=== PATIENT | female | born 1980 | race Caucasian/White ===

== ENCOUNTER 2017-11-24 08:00 | Outpatient (CLI) | payer OTHER ==
[2017-11-24 19:50] LABS: H. PYLORIS ANTIGEN STL NEGATIVE (Negative)
== END 2017-11-24 08:01 | disposition home or self-care (01) ==
LOC: LAB.WCP 08:00
PROVIDERS: ATTEND Family Medicine
DX: R19.7 Diarrhea, unspecified (principal)
CPT/HCPCS: 81599; 83630; 87045; 87046; 87177; 87209; 87329; 87338; 87493

== ENCOUNTER 2018-04-09 16:51 | Outpatient (CLI) | payer OTHER ==
--- NOTE | 2018-04-10 19:06 | Ultrasound Report ---
Procedure Date: 04/09/2018 Accession Number: [id number] / [id number] Procedure: US - Pelvic w/Transvaginal CPT Code: FULL RESULT: EXAM: PELVIC ULTRASOUND EXAM DATE: 04/09/2018 05:53 PM. CLINICAL HISTORY: Irregular menses. G2, P 2. LMP 03/18/2018. COMPARISON: None. TECHNIQUE: Realtime transabdominal pelvic scan performed to identify the uterus and adnexa and as an overview of other pelvic structures, followed by transvaginal scan to provide greater detail of the uterus and adnexa, with static image documentation. FINDINGS: Uterus: 7.2 x 5.3 x 4.5 cm, volume 89.8 cc. Retroverted position. Normal overall size and appearance. Masses: None. Endometrium: 10-11 mm. Homogeneous echotexture. No endometrial masses. No increased vascularity. Cervix: Nabothian cysts noted. Right Ovary: 2.7 x 1.8 x 2.2 cm, volume 5.6 cc. Normal echotexture and blood flow. Follicles are present within the right ovary the largest measuring 1.4 x 1.2 x 1.3 cm. Left Ovary: 3.7 x 1.9 x 1.6 cm, volume 5.9 cc. Normal echotexture and blood flow. Complex cyst present in the left ovary measuring 1.4 x 1.4 x 1.4 cm with mild peripheral vascularity. Adjacent unilocular follicular cyst is seen measuring 1.4 x 0.9 x 0.8 cm. Free Fluid: Small volume of pelvic free fluid. Other: None. IMPRESSION: 1. Normal sonographic appearance of the uterus and endometrium. 2. Bilateral ovarian follicles. Mildly complex left ovarian 1.4 cm cyst which may represent a complex follicular/corpus luteal cyst. RADIA
== END 2018-04-09 16:52 | disposition home or self-care (01) ==
LOC: DI 16:51
PROVIDERS: ATTEND Family Medicine
DX: N83.292 Other ovarian cyst, left side (principal)
CPT/HCPCS: 76830; 76856

== ENCOUNTER 2018-04-10 10:15 | Outpatient (CLI) | payer OTHER ==
--- NOTE | 2018-04-10 23:36 | Ultrasound Report ---
Procedure Date: 04/10/2018 Accession Number: [id number] / [id number] Procedure: US - Abdomen Complete CPT Code: FULL RESULT: EXAM: ABDOMEN ULTRASOUND. EXAM DATE: 04/10/2018 11:29 AM. CLINICAL HISTORY: Nausea. COMPARISON: None. TECHNIQUE: Real-time scanning was performed with static images obtained. FINDINGS: Liver: Normal in size and echotexture. 14.6 cm. Main portal vein flow: Hepatopetal. Gallbladder: Normal. No stones, wall thickening, or sonographic Lam's sign. Biliary System: Common bile duct measures 4 mm. No intrahepatic or extrahepatic ductal dilatation. Pancreas: Visualized portion is unremarkable. Kidneys: Right: 10.6 cm longitudinally. Normal. No contour-deforming mass, stones, or hydronephrosis. Left: 11.9 cm longitudinally. Normal. No contour-deforming mass, stones, or hydronephrosis. Spleen: 10.5 x 4.5 x 5.1 cm. Normal in size and echotexture. Aorta and Inferior Vena Cava: Unremarkable. Other: None. IMPRESSION: Normal abdomen ultrasound. RADIA
== END 2018-04-10 10:16 | disposition home or self-care (01) ==
LOC: DI 10:15
PROVIDERS: ATTEND Family Medicine
DX: R11.0 Nausea (principal)
CPT/HCPCS: 76700

== ENCOUNTER 2018-06-12 16:41 | Outpatient (CLI) | payer OTHER ==
--- NOTE | 2018-06-12 20:51 | Ultrasound Report ---
Reason: OTHER SPECIFIED ABNORMAL UTERINE VAGINAL BLEEDIN Procedure Date: 06/12/2018 Accession Number: [id number] / [id number] Procedure: US - Pelvic w/Transvaginal CPT Code: FULL RESULT: EXAM: PELVIC ULTRASOUND EXAM DATE: 06/12/2018 05:51 PM. CLINICAL HISTORY: Other specified abnormal uterine vaginal bleeding. COMPARISON: Pelvic with transvaginal 04/09/2018. TECHNIQUE: Realtime transabdominal pelvic scan performed to identify the uterus and adnexa and as an overview of other pelvic structures, followed by transvaginal scan to provide greater detail of the uterus and adnexa, with static image documentation. FINDINGS: Uterus: 6.9 x 4.8 x 3.9 cm, volume 67.2 cc. Anteverted position. Normal overall size and echotexture. Masses: None. Endometrium: 8.3 mm. Normal. Cervix: Small nabothian cysts. Right Ovary: 4.9 x 2.3 x 2.2 cm, volume 12.9 cc. Physiologic cysts measuring up to 2.7 cm. Normal ovarian blood flow. Left Ovary: 3.4 x 1.8 x 1.0 cm, volume 3.2 cc. Normal echotexture and blood flow. Free Fluid: None. Other: None. IMPRESSION: 1. Unremarkable pelvic ultrasound exam noting a dominant functional 2.7 cm right ovarian cyst. RADIA
== END 2018-06-12 16:42 | disposition home or self-care (01) ==
LOC: DI 16:41
PROVIDERS: ATTEND Registered Nurse
DX: N93.8 Other specified abnormal uterine and vaginal bleeding (principal); N83.201 Unspecified ovarian cyst, right side
CPT/HCPCS: 76830; 76856

== ENCOUNTER 2018-08-07 12:08 | Outpatient (CLI) | payer OTHER ==
--- NOTE | 2018-08-09 09:31 | Ultrasound Report ---
Reason: OTHER OVARIAN DYSFUNCTION Procedure Date: 08/07/2018 Accession Number: [id number] / [id number] Procedure: US - Pelvic w/Transvaginal CPT Code: FULL RESULT: EXAM: PELVIC ULTRASOUND EXAM DATE: 08/07/2018 12:16 PM. CLINICAL HISTORY: OTHER OVARIAN DYSFUNCTION. COMPARISON: Pelvic ultrasound 04/09/2018. Pelvic ultrasound report 06/12/2018. TECHNIQUE: Realtime transabdominal pelvic scan performed to identify the uterus and adnexa and as an overview of other pelvic structures, followed by transvaginal scan to provide greater detail of the uterus and adnexa, with static image documentation. FINDINGS: Uterus: 6.6 x 4.7 x 3.7 cm, volume 60 cc. Anteverted position. Normal overall size and echotexture. Masses: None. Endometrium: 6.2 mm. Normal. Cervix: Unremarkable. Right Ovary: 2.4 x 1.6 x 1.4 cm, volume 2.8 cc. Normal echotexture and blood flow. Left Ovary: 4.9 x 3.2 x 1.8 cm, volume 5.1 cc. Normal echotexture and blood flow. There is a dominant simple follicle/cyst measuring 2.6 cm. Free Fluid: None. Other: None. IMPRESSION: 1. Unremarkable pelvic ultrasound. RADIA
== END 2018-08-07 12:09 | disposition home or self-care (01) ==
LOC: DI 12:08
PROVIDERS: ATTEND Registered Nurse
DX: N83.202 Unspecified ovarian cyst, left side (principal); E28.8 Other ovarian dysfunction
CPT/HCPCS: 76830; 76856

== ENCOUNTER 2019-06-16 10:18 | Outpatient (CLI) | payer OTHER ==
--- NOTE | 2019-06-20 16:29 | Mammography Report ---
Reason: SCREENING MAMMO Procedure Date: 06/16/2019 Accession Number: [id number] / [id number] Procedure: MGN - Screening Mammo Dig Bilat CPT Code: FULL RESULT: EXAM: Screening Mammo Dig Bilat DATE: 06/16/2019 10:50 AM CLINICAL HISTORY: Baseline mammogram TECHNIQUE: (B) - Bilateral CC and MLO views were obtained. COMPARISON: None PARENCHYMAL PATTERN: (VD) - The breasts demonstrate extremely dense parenchyma bilaterally, limiting the sensitivity of mammography. FINDINGS: There are no suspicious masses, calcifications, skin thickening, or areas of distortion. IMPRESSION: Negative examination. BI-RADS category 1. RECOMMENDATION: (ANNUAL) - Recommend routine annual screening mammography. BI-RADS CATEGORY: (1) - Negative. STANDARD QUALIFYING STATEMENTS: 1. This examination was not reviewed with the aid of Computer-Aided Detection (CAD). 2. A negative or benign imaging report should not preclude biopsy if clinically suspicious findings are present. 3. Dense breasts may obscure an underlying neoplasm. 4. This examination was reviewed without the aid of 3D breast imaging (tomosynthesis).
== END 2019-06-16 10:19 | disposition home or self-care (01) ==
LOC: DI.N 10:18
DX: Z12.31 Encounter for screening mammogram for malignant neoplasm of breast (principal)
CPT/HCPCS: 77067

== ENCOUNTER 2023-12-15 08:58 | Outpatient (CLI) | payer OTHER ==
--- NOTE | 2023-12-16 09:40 | Mammography Report ---
BILATERAL DIGITAL SCREENING MAMMOGRAM 3D/2D: 12/15/2023 CLINICAL: Routine screening. Comparison is made to exams dated: 07/14/2022 mammogram, 07/04/2022 mammogram, 05/27/2021 mammogram - [facility], and 06/16/2019 mammogram - [facility]. Both breasts are extremely dense, which lowers the sensitivity of mammography (category d />75% gland ular tissue). No significant masses, calcifications, or other findings are seen in either breast. There has been no significant interval change. IMPRESSION: NEGATIVE There is no mammographic evidence of malignancy. A 1 year screening mammogram is recommended. Based on the Tyrer Cuzick model (a risk assessment model) the patient's lifetime risk is 15.8% and he r 10 year risk is 2.8%. According to the ACR, ACS, and NCCN guidelines, an annual breast MRI exam johnnie ng with mammogram is recommended if the patient's lifetime risk is 20% or greater. This exam was interpreted at Station ID: [id number]. NOTE: For mammograms, a report in lay terms will be sent to the patient. Approximately 15% of breast malignancies will not be visualized mammographically. In the management of a palpable breast mass, a negative mammogram must not discourage biopsy of a clinically suspicious lesion. Electronically Signed By: Blanca Meng M.D., PH.D gabrielle/sriram:12/15/2023 14:08:25 letter sent: No_Letter ACR BI-RADS Category 1: Negative 3341F PARENCHYMAL PATTERN: (VD) - The breast(s) demonstrate(s) extremely dense parenchyma, limiting the sen sitivity of mammography. BI-RADS CATEGORY: (1) - 1 RECOMMENDATION: (ANNUAL) - Recommend routine annual screening mammography. [id number] 1 year screening LATERALITY: (B)
== END 2023-12-15 08:59 | disposition home or self-care (01) ==
LOC: DI.N 08:58
PROVIDERS: ATTEND Registered Nurse
DX: Z12.31 Encounter for screening mammogram for malignant neoplasm of breast (principal); R92.30 Dense breasts, unspecified